=== PATIENT | male | born 1955 | race Caucasian/White ===

== ENCOUNTER 2018-07-18 18:07 | Emergency (ER) | payer BC ==
[2018-07-18] MEDS ORDERED: Lidocaine 1% 20 ML MDV INJECT ONE (18:34)
--- NOTE | 2018-07-18 19:51 | EDM.PDOC ---
ED HPI GENERAL MEDICAL PROBLEM - General Chief Complaint: Laceration Stated Complaint: HAND TRAUMA VIA NORTH Time Seen by Provider: 07/18/18 18:25 Source of Information: Reports: Patient, Family History Limitations: Reports: No Limitations - History of Present Illness INITIAL COMMENTS - FREE TEXT/NARRATIVE: pt took the blades out of a control clerk food and beverage and somehow he On something and the blades went against the heller aspect of his left hand. He ended up with 2 deep lacerations at the base of the ring finger and the middle finger. He ended up with sig bleeding from the 2 sites. He Now is not able to move the middle or index finger what so ever. He does have sensation. But at first he did not. Onset: Today, Sudden Duration: Hour(s): Location: Reports: Upper Extremity, Left Associated Symptoms: Reports: No Other Symptoms Right Hand Pain Score (Numeric/FACES): 3 - Related Data Allergies Allergy/AdvReac Type Severity Reaction Status Date / Time No Known Allergies Allergy Verified 07/18/18 18:27 Home Meds: Home Meds Aspirin [Ecotrin] 81 mg PO DAILY 07/18/18 [History] amLODIPine Besylate [Amlodipine Besylate] 10 mg PO DAILY 07/18/18 [History] atorvaSTATin Calcium [Atorvastatin Calcium] 20 mg PO BEDTIME 07/18/18 [History] Past Medical History Cardiovascular History: Reports: High Cholesterol, Hypertension - Past Surgical History HEENT Surgical History: Reports: Other (See Below) Other HEENT Surgeries/Procedures: removed aylin growth in right ear GI Surgical History: Reports: Appendectomy Social & Family History - Tobacco Use Smoking Status *Q: Current Every Day Smoker Years of Tobacco use: 30 Packs/Tins Daily: 0.5 - Caffeine Use Caffeine Use: Reports: Coffee - Recreational Drug Use Recreational Drug Use: No ED ROS GENERAL - Review of Systems Review Of Systems: See Below Constitutional: Reports: No Symptoms HEENT: Reports: No Symptoms Respiratory: Reports: No Symptoms Cardiovascular: Reports: No Symptoms Endocrine: Reports: No Symptoms GI/Abdominal: Reports: No Symptoms : Reports: No Symptoms Skin: Reports: Other (laceration of left ring finger and middle finger on the heller aspect. ) Neurological: Reports: No Symptoms Psychiatric: Reports: Anxiety Hematologic/Lymphatic: Reports: No Symptoms ED EXAM, SKIN/RASH Exam: See Below Text/Narrative:: pt was handling the blades to a food processer and jammed it into his hand on the heller aspect. He ended up with a laceration at the base of the middle and ring finger. He did do a fair amount of bleeding and a ambulance was called for that reason. Exam Limited By: No Limitations General Appearance: Alert, Anxious, Mild Distress, Other (Pt did not have alot of pain with the laceration. ) Extremities: Normal Inspection, Other ( Pt has a 1 inch laceration at the base of the middle and the ring finger. He is not able to move either finger. A xray was obtained which did not show any aylin disruption. ) Neurological: Alert, Oriented, Normal Cognition Psychiatric: Normal Affect Course - Vital Signs Last Recorded V/S: Last Vital Signs Temp 36.6 C 07/18/18 20:13 Pulse 72 07/18/18 20:13 Resp 16 07/18/18 20:13 BP 123/78 07/18/18 20:13 Pulse Ox 94 L 07/18/18 20:13 - Orders/Labs/Meds Meds: Medications Discontinued Medications Generic Name Dose Route Start Last Admin Trade Name Lizeth PRN Reason Stop Dose Admin Lidocaine HCl 20 ml 07/18/18 18:34 07/18/18 18:56 Xylocaine 1% INJECT 07/18/18 18:35 20 ml ONETIME ONE Administration - Re-Assessments/Exams Free Text/Narrative Re-Assessment/Exam: 07/18/18 20:07 case was discussed with Dr Cortez --Hand surgeon who will see him in Er at [facility] The xray was already transfered to [facility]. Departure - Departure Time of Disposition: 19:59 Disposition: DC/Tfer to Acute Hospital 02 Condition: Fair Clinical Impression: Laceration of left middle finger with tendon involvement, Laceration of ring finger with tendon involvement - Discharge Information Instructions: Nonsutured Laceration Care Referrals: PCP,None [Primary Care Provider] - Forms: ED Department Discharge Care Plan Goals: to [facility] ER -- to see Dr cortez Hand surgeon Pt is current with tetanus, He last ate about 11 am. He will remain npo in route.
--- NOTE | 2018-07-23 08:45 | CR ---
Hand Comp Min 3V Lt HISTORY: Laceration COMPARISON: None FINDINGS: No radiopaque foreign body. No acute fracture. Moderate degenerative change in the first CMC joint.
== END 2018-07-18 20:28 ==
LOC: JP.ED 18:07
DX: S66.125A Laceration of flexor muscle, fascia and tendon of left ring finger at wrist and hand level, initial encounter (principal); S66.123A Laceration of flexor muscle, fascia and tendon of left middle finger at wrist and hand level, initial encounter; I10 Essential (primary) hypertension; F17.210 Nicotine dependence, cigarettes, uncomplicated; Z90.49 Acquired absence of other specified parts of digestive tract; W26.8XXA Contact with other sharp object(s), not elsewhere classified, initial encounter
CPT/HCPCS: 73130-26-LT; 73130-LT; 99284

== ENCOUNTER 2020-03-26 06:28 | Day surgery (SDC) | payer BC ==
[2020-03-26] MEDS ORDERED: Dextrose 5%-Lactated Ringers 1,000 ML IV SCH (07:00)
[2020-03-26] MEDS ORDERED: Midazolam 1 MG/ML 2 ML SDV ONE (07:09)
[2020-03-26] MEDS ORDERED: fentaNYL 100 MCG/2 ML SDV ONE (07:09)
[2020-03-26] MEDS ORDERED: Propofol 200 MG/20 ML SDV ONE (07:09)
[2020-03-26] MEDS ORDERED: Glycopyrrolate 0.2 MG/ML 2 ML SDV IVPUSH ONE (08:00)
[2020-03-26] MEDS ORDERED: Pantoprazole 40 MG Vial IVPUSH ONE (08:30)
--- NOTE | 2020-04-07 16:09 | OR ---
DATE OF PROCEDURE: 03/26/2020 SURGEON: Jhonathan Liz MD PREOPERATIVE DIAGNOSIS: Persistent sense of throat irritation and possible foreign body. POSTOPERATIVE DIAGNOSES: 1. Hypopharynx and larynx diffusely reddened consistent with gastroesophageal reflux disease (no foreign body). 2. Erosive esophagitis above large (6 cm) hiatal hernia. 3. Diffuse erosive gastritis and duodenitis. OPERATIVE PROCEDURE: Esophagogastroduodenoscopy with: 1. Biopsies of esophagogastric junction for histologic evaluation. 2. Biopsies of antrum for CLOtest. ANESTHESIA: IV sedation. INDICATIONS FOR PROCEDURE: This is a 64-year-old male presenting with a persistent sense of throat irritation being suspicious there might be a retained foreign body in that area. Plan is to proceed with upper GI endoscopy with removal of foreign body and/or biopsies as indicated. Potential risks of the procedure including bleeding and perforation were discussed and the patient wishes to proceed. DETAILS OF PROCEDURE: The patient was taken to the operating room and placed in a left lateral decubitus position. IV sedation was administered after which the upper GI endoscope was passed orally through the length of the esophagus and into the stomach with retroflexion view of the fundus, and thereafter through the pyloric channel and into the proximal duodenum. Findings included some diffuse reddening of the hypopharynx and larynx no other specific abnormalities and no foreign bodies were present. As one passed into the esophagus, the upper esophageal sphincter and upper and mid esophageal body were unremarkable. The patient did have a large hiatal hernia with a very active erosive esophagitis above a roughly 6 cm hiatal hernia. He had several upward extensions and linear erosions or ulcers extending perhaps in the 3 to 4 cm range above the mucosal esophagogastric junction. There was no plaquing or stricturing or other signs of neoplasia there. Within the stomach, there was more or less a diffuse gastritis beginning at the main body and then more pronounced in the antrum. This was associated with some scattered erosions and the duodenal bulb was also involved with duodenitis, and was unremarkable At this point, biopsies were obtained from the antrum and sent for CLOtest for H. pylori, and then multiple biopsies were obtained in the areas of the ulceration as well as some upward extension of the gastroesophageal junction mucosal line potentially associated with Escamilla's esophagus. Minimal bleeding from the biopsy sites was seen and the procedure then concluded. The patient's laryngopharyngeal symptoms are clearly related to severe reflux at this point. We will give him Protonix 40 mg IV in the recovery room, then begin Protonix 40 mg daily, and we will have the patient followup with his personal physician, Dr. Liz Webb in [facility]. If his symptoms persist, one could consider an ENT evaluation. Likewise, if the patient is not well controlled by medical management and/or wishes to be off medications, a laparoscopic Gemini fundoplication would be a good option as well and we would be happy to see him back for that procedure should the patient and his become interested. Jhonathan Liz MD /[id number]
== END 2020-03-26 09:25 | disposition home or self-care (01) ==
LOC: JP.SDS 06:28
PROVIDERS: ATTEND Surgery
DX: K20.0 Eosinophilic esophagitis (principal); K29.70 Gastritis, unspecified, without bleeding; K25.9 Gastric ulcer, unspecified as acute or chronic, without hemorrhage or perforation; K44.9 Diaphragmatic hernia without obstruction or gangrene; J39.2 Other diseases of pharynx; J38.7 Other diseases of larynx; K29.80 Duodenitis without bleeding; I10 Essential (primary) hypertension; F17.200 Nicotine dependence, unspecified, uncomplicated; F43.10 Post-traumatic stress disorder, unspecified
CPT/HCPCS: 43239; 87081; 88305; 88312; C9113; J2250; J2704; J3010; J3490; J7121